=== PATIENT | female | born 1975 | race Caucasian/White ===

== ENCOUNTER 2017-12-27 22:25 | Emergency (ER) | payer OTHER ==
[~2017-12-27 22:25] MED LIST: ADAP0.1G8 TOP; ASPI81TA28 PO; ATEN-173 PO; FEXO180T PO; MEDR150I IM; OMEP40CA PO; RIVA1TAB4 PO; TIZA2CAP PO; TRAM-10 PO; VARE1PAK15 PO
[2017-12-27 22:45] VITALS: Ht 167.6 cm
[2017-12-27] MEDS ORDERED: SODIUM CHLORIDE 0.9% 1000ML 1,000 ML IV STA (22:48)
[2017-12-27 22:49] VITALS: O2SAT 100
--- NOTE | 2017-12-27 22:50 | EMERGENCY ROOM VISIT NOTE ---
History Report prepared by Roxie: Gemma Betancourt Under the Supervision of: Dr. Triston Tapia M.D. First contact with patient: 22:37 Chief Complaint: IRREGULAR HEARTBEAT Stated Complaint: AFIB, HEADACHE, NAUSEA- CARDIAC HX History of Present Illness The patient is a 42 year old female who presents to the Emergency Room with complaints of an irregular heartbeat beginning at 1430 today. She reports she came into the ED today because her she felt her heart was been beating "harder" today. She notes she has a history of Afib. The patient reports she gets nauseous and vomits when her episodes begin but denies any fevers, chills, or cough. She is not on Xarelto regularly but only takes it when her episodes begin. She last took 20 mg Xarelto at 1600 but she vomited at 1645. She is a current smoker and gets control shots so she does not have a normal menstrual cycle. Her coremaker bench is Dr. Arriaga, [facility] Cardio. She currently takes Atenolol 25 mg. Source of History: patient Onset: 1430 today Position: chest Quality: other (heart beating "harder" today) Timing: other (sudden) Associated Symptoms: + nausea, + vomiting Review of Systems See HPI for pertinent positives and negatives. A total of ten systems were reviewed and were otherwise negative. Past Medical & Surgical Medical Problems: (1) A-fib (2) Anxiety Family History Diabetes mellitus FH: heart disease FHx: cancer Hypertension Social History Smoking Status: Current Every Day Smoker Alcohol Use: occasionally Drug Use: none Marital Status: Occupation Status: employed Current/Historical Medications Scheduled Atenolol (Tenormin), 25 MG PO QAM Medroxyprogesterone Acetate (C (Depo-Provera Contraceptiv), 1 DOSE INJ Q3MO Omeprazole (Omeprazole Dr), 40 MG PO QAM [Hemp Oil], 250 MG PO BID Scheduled PRN Fexofenadine Hcl (Nanci), 180 MG PO DAILY PRN for Seasonal Allergies Rivaroxaban (Xarelto), 1 TAB PO DIRECTED PRN for AFIB Allergies Coded Allergies: Minocycline (Verified Allergy, Intermediate, RASH, 12/28/17) POLLEN (Verified Allergy, Intermediate, ITCHY, WATERY EYES, SNEEZING, CONGESTION, 12/28/17) Physical Exam Vital Signs Date Time Temp Pulse Resp B/P (MAP) Pulse Ox O2 Delivery O2 Flow Rate FiO2 12/28/17 01:45 83 16 106/80 98 12/28/17 00:53 98 18 119/80 97 Room Air 12/27/17 22:49 100 Room Air 12/27/17 22:45 100 Room Air 12/27/17 22:45 114 31 127/74 100 Room Air 12/27/17 22:40 115 Physical Exam GENERAL: Awake, alert, fatigued-appearing, in no distress HENT: Normocephalic, atraumatic. Oropharynx unremarkable. Mucous membranes are dry. EYES: Normal conjunctiva. Sclera non-icteric. NECK: Supple. No nuchal rigidity. FROM. No JVD. RESPIRATORY: Clear to auscultation. CARDIAC: Tachycardic rate, Irregularly irregular rhythm. Extremities warm and well perfused. Pulses equal. ABDOMEN: Soft, non-distended. No tenderness to palpation. No rebound or guarding. No masses. RECTAL: Deferred. MUSCULOSKELETAL: Chest examination reveals no tenderness. The back is symmetrical on inspection without obvious abnormality. There is no CVA tenderness to palpation. No joint edema. LOWER EXTREMITIES: Calves are equal size bilaterally and non-tender. No edema. No discoloration. NEURO: Normal sensorium. No sensory or motor deficits noted. SKIN: No rash or jaundice noted. Medical Decision & Procedures ER Provider Diagnostic Interpretation: Radiology results as stated below per my review and interpretation: CHEST XRAY Chest X-ray is normal. Mediastinum. No gross infiltrates Laboratory Results 12/27/17 22:40 Red Blood Count 5.04, Mean Corpuscular Volume 88.3, Mean Corpuscular Hemoglobin 29.4, Mean Corpuscular Hemoglobin Concent 33.3, Mean Platelet Volume 12.1, Neutrophils (%) (Auto) 66.8, Lymphocytes (%) (Auto) 25.3, Monocytes (%) (Auto) 6.9, Eosinophils (%) (Auto) 0.4, Basophils (%) (Auto) 0.2, Neutrophils # (Auto) 9.21, Lymphocytes # (Auto) 3.48, Monocytes # (Auto) 0.95, Eosinophils # (Auto) 0.06, Basophils # (Auto) 0.03 12/27/17 22:40 Test 12/27/17 22:40 White Blood Count 13.78 K/uL (4.8-10.8) Red Blood Count 5.04 M/uL (4.2-5.4) Hemoglobin 14.8 g/dL (12.0-16.0) Hematocrit 44.5 % (37-47) Mean Corpuscular Volume 88.3 fL (80-100) Mean Corpuscular Hemoglobin 29.4 pg (25-34) Mean Corpuscular Hemoglobin Concent 33.3 g/dl (32-36) Platelet Count 228 K/uL (130-400) Mean Platelet Volume 12.1 fL (7.4-10.4) Neutrophils (%) (Auto) 66.8 % Lymphocytes (%) (Auto) 25.3 % Monocytes (%) (Auto) 6.9 % Eosinophils (%) (Auto) 0.4 % Basophils (%) (Auto) 0.2 % Neutrophils # (Auto) 9.21 K/uL (1.4-6.5) Lymphocytes # (Auto) 3.48 K/uL (1.2-3.4) Monocytes # (Auto) 0.95 K/uL (0.11-0.59) Eosinophils # (Auto) 0.06 K/uL (0-0.5) Basophils # (Auto) 0.03 K/uL (0-0.2) RDW Standard Deviation 43.5 fL (36.4-46.3) RDW Coefficient of Variation 13.5 % (11.5-14.5) Immature Granulocyte % (Auto) 0.4 % Immature Granulocyte # (Auto) 0.05 K/uL (0.00-0.02) Anion Gap 8.0 mmol/L (3-11) Estimated GFR () 103.7 Estimated GFR (Non- 89.5 BUN/Creatinine Ratio 16.3 (10-20) Calcium Level 8.9 mg/dl (8.5-10.1) Phosphorus Level 4.1 mg/dl (2.5-4.9) Magnesium Level 2.2 mg/dl (1.8-2.4) Total Bilirubin 1.1 mg/dl (0.2-1) Direct Bilirubin 0.2 mg/dl (0-0.2) Aspartate Amino Transf (AST/SGOT) 13 U/L (15-37) Alanine Aminotransferase (ALT/SGPT) 28 U/L (12-78) Alkaline Phosphatase 107 U/L (45-117) Total Protein 7.1 gm/dl (6.4-8.2) Albumin 3.8 gm/dl (3.4-5.0) Lipase 95 U/L (73-393) Thyroid Stimulating Hormone (TSH) 0.706 uIu/ml (0.300-4.500) Human Chorionic Gonadotropin, Qual NEG (NEG) Laboratory results reviewed by me Medications Administered Medications (Trade) Dose Ordered Sig/Antwan Route Start Time Stop Time Status Last Admin Dose Admin Sodium Chloride 1,000 ml @ 999 mls/hr Q1H1M STAT IV 12/27/17 22:48 12/27/17 23:48 DC 12/27/17 22:48 999 MLS/HR Lorazepam (Ativan Inj) 0.5 mg NOW STAT IV 12/27/17 22:52 12/27/17 22:53 DC 12/27/17 23:01 0.5 MG Metoclopramide HCl (Reglan Inj) 10 mg NOW STAT IV 12/27/17 23:40 12/27/17 23:41 DC 12/27/17 23:46 10 MG Dexamethasone Sodium Phosphate (Dexamethasone Inj Pf) 10 mg NOW ONCE IV 12/28/17 01:30 12/28/17 01:31 DC 12/28/17 01:35 10 MG Acetaminophen (Tylenol Tab) 1,000 mg NOW STAT PO 12/28/17 01:25 12/28/17 01:27 DC 12/28/17 01:36 1,000 MG ECG Per My Interpretation Indication: other (irregular heartbeat) Rate (beats per minute): 122 Rhythm: atrial fibrillation (with RVR) Findings: RBBB (incomplete), no acute ischemic change, other (normal axis) ED Course 2215: The patient was evaluated in room B2. A complete history and physical exam was performed. Medical Decision I reviewed the patient's past medical history, medications, and the nursing notes as described above. Differential diagnosis: Etiologies such as premature contractions, electrolyte abnormality, cardiac dysrhythmia, thyroid dysfunction, pulmonary embolism, infection, gastrointestinal, as well as others were entertained. The patient is a 42 y/o woman with a pmhx of pAfib on Atenolol, Anxiety, BPD, prior substance abuse who presents to the emergency department with palpitations and recurrence of her afib per HPI. Of note patient has rx for Xarelto for when her afib recurs. Of note, patient reports her episodes usually resolve on their own and would not want "electrical cardioversion". On arrival the patient is fatigued appearing but in NAD, AF with HR 120-130s but VS otherwise stable. EKG demonstrates Afib with RVR and incomplete RBBB that is unchanged from prior. CXR negative. WBC 13.7 nonspecific. Chemistry unremarkable. Sx and HR improved with IVF in the setting of patient taking dose of her Atenolol [employer]. SANTANA significantly improved with Reglan. Given APAP and dexamethasone for additional relief and to reduce risk of recurrence. Otherwise , while onset of sx is confidently < 48 hours, given the patient's with resolution of sx and rate control will defer chemical cardioversion at this time. Patient to continue her medications and follow up with cardiology tomorrow. Findings and plan for follow-up reviewed with patient. Patient agreeable and d/c'd per discharge instructions. Medication Reconcilliation Current Medication List: was personally reviewed by me Blood Pressure Screening Patient's blood pressure: Normal blood pressure Blood pressure disposition: Did not require urgent referral Impression Primary Impression: Atrial fibrillation Scribe Attestation The scribe's documentation has been prepared under my direction and personally reviewed by me in its entirety. I confirm that the note above accurately reflects all work, treatment, procedures, and medical decision making performed by me. Departure Information Dispostion Home / Self-Care Referrals RV. Burrows MD (PCP) Yazan Arriaga M.D. Patient Instructions Atrial Fibrillation, My [facility] Additional Instructions Please follow up with your coremaker bench, Dr. Arriaga, tomorrow for re- evaluation. You were evaluated and treated for a recurrence of her atrial fibrillation. Your symptoms and heart rate improved with IV fluid hydration in the setting of your additional dose of atenolol prior to arrival. Otherwise, your exam, EKG, chest xray, and lab results did not show signs of an emergent condition at this time. Continue your medications as prescribed including her Xarelto until reevaluated. Drink plenty of fluids to ensure hydration. Return to the emergency department for worsening symptoms as described in the accompanying instructions.
[2017-12-27] MEDS ORDERED: LORAZEPAM 2 MG/ML 1 ML VIAL IV STA (22:52)
[2017-12-27 22:59] LABS: BASO % 0.2 %; BASO ABS # 0.03 K/uL (0-0.2); EOS % 0.4 %; EOS ABS # 0.06 K/uL (0-0.5); HEMATOCRIT 44.5 % (37-47); HEMOGLOBIN 14.8 g/dL (12.0-16.0); IG# 0.05 K/uL (0.00-0.02); LYMPH % 25.3 %; LYMPH ABS # 3.48 K/uL (1.2-3.4); MEAN CELL VOLUME 88.3 fL (80-100); MEAN CORPUSCULAR HEMOGLOBIN 29.4 pg (25-34); MEAN CORPUSCULAR HGB CONC 33.3 g/dl (32-36); MEAN PLATELET VOLUME 12.1 fL (7.4-10.4); MONO % 6.9 %; MONO ABS # 0.95 K/uL (0.11-0.59); NEUT % 66.8 %; NEUT ABS # 9.21 K/uL (1.4-6.5); PLATELET COUNT 228 K/uL (130-400); RED CELL DISTRIBUTION WIDTH CV 13.5 % (11.5-14.5); RED CELL DISTRIBUTION WIDTH SD 43.5 fL (36.4-46.3); WHITE BLOOD COUNT 13.78 K/uL (4.8-10.8)
[2017-12-27 23:30] LABS: ALBUMIN 3.8 gm/dl (3.4-5.0); ALKALINE PHOSPHATASE 107 U/L (45-117); ALT/SGPT 28 U/L (12-78); AST/SGOT 13 U/L (15-37); BLOOD UREA NITROGEN 13 mg/dl (7-18); CALCIUM 8.9 mg/dl (8.5-10.1); CARBON DIOXIDE 22 mmol/L (21-32); CREATININE 0.82 mg/dl (0.60-1.20); GLUCOSE 119 mg/dl (70-99); LIPASE 95 U/L (73-393); PHOSPHORUS 4.1 mg/dl (2.5-4.9); POTASSIUM 3.8 mmol/L (3.5-5.1); SODIUM 138 mmol/L (136-145); TOTAL PROTEIN 7.1 gm/dl (6.4-8.2)
[2017-12-27] MEDS ORDERED: METOCLOPRAMIDE HCL INJ 5 MG/ML 2 ML VIAL IV STA (23:40)
[2017-12-28] MEDS ORDERED: FEXO1TAB46 PO (00:22)
[2017-12-28] MEDS ORDERED: MEDR150I INJ (00:22)
[2017-12-28] MEDS ORDERED: OMEP-334 PO (00:22)
[2017-12-28] MEDS ORDERED: HEMP OIL PO (00:22)
[2017-12-28] MEDS ORDERED: ACETAMINOPHEN IV 100 ML IV STA (01:22)
[2017-12-28] MEDS ORDERED: ACETAMINOPHEN 500 MG TAB PO STA (01:25)
[2017-12-28] MEDS ORDERED: DEXAMETHASONE **PF** INJ 10 MG/ML VIAL IV ONE (01:30)
[2017-12-28 01:45] VITALS: BP 106/80; PULSE 83; O2SAT 98
--- NOTE | 2017-12-28 07:17 | DIAGNOSTIC IMAGING REPORT ---
CHEST ONE VIEW PORTABLE HISTORY: Atypical CHEST PAIN COMPARISON: Chest 03/12/2013. FINDINGS: The lungs are clear. Cardiac silhouette is normal in size. No pleural effusions. No pneumothorax. IMPRESSION: No acute process. Electronically signed by: Oleksandr Isaacs M.D. 12/28/2017 7:16 AM Dictated Date/Time: 12/28/2017 7:14 AM
== END 2017-12-28 01:46 | disposition home or self-care (01) ==
LOC: C.EDB 22:26
DX: I48.91 Unspecified atrial fibrillation (principal); I45.10 Unspecified right bundle-branch block; Z79.899 Other long term (current) drug therapy; F17.200 Nicotine dependence, unspecified, uncomplicated; Z88.1 Allergy status to other antibiotic agents

== ENCOUNTER 2025-03-19 13:48 | Observation (INO) ==
[2025-03-19 15:20] LABS: Hematocrit (blood only) 39.7 % (37.0-47.0); Hemoglobin 14.1 g/dl (12.0-16.0); Mean Corpuscular Hemoglobin 31.3 pg (25.0-34.0); Mean Corpuscular Volume 88.2 fL (80.0-100.0); Platelet Count 259 K/uL (130-400); RDW Standard Deviation 38.0 fL (36.4-46.3); Red Blood Count 4.50 M/uL (4.20-5.40); White Blood Count 8.68 K/ul (4.8-10.8)
--- NOTE | 2025-03-19 15:20 | CT Scan Report ---
CT SCAN OF THE BRAIN WITHOUT IV CONTRAST CLINICAL HISTORY: Possible acute stroke. Difficulty using the right arm. Numbness and tingling. COMPARISON STUDY: None TECHNIQUE: Unenhanced axial CT scan of the brain was performed from the vertex to the skull base. A dose lowering technique was utilized adhering to the principles of ALARA. CT DOSE: 625.8 mGy.cm FINDINGS: No intra or extra-axial mass lesions are visualized. There is no CT evidence of acute cortical infarc tion. There is no evidence of midline shift. There is no evidence of acute hemorrhage. There is no ev idence of hydrocephalus. Bone windows reveal groundglass changes within the posterior mastoid. 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 There is no evidence of acute hydrocephalus. IMPRESSION: No acute intracranial findings. ACT 112: Negative or not required by law. Electronically signed by: Ray Hamilton M.D. 03/19/2025 3:19 PM
--- NOTE | 2025-03-19 15:32 | XRay Report ---
SINGLE VIEW CHEST CLINICAL HISTORY: Strokelike symptoms FINDINGS: A PA chest radiograph is compared to study dated 01/12/2025. The cardiomediastinal silhouett e is unremarkable. The lungs and pleural spaces are clear. No pneumothorax is seen. The bony thorax i s grossly intact. IMPRESSION: No active disease in the chest. ACT 112: Negative or not required by law. Electronically signed by: Sean Lowe M.D. 03/19/2025 3:30 PM
[2025-03-19 15:44] LABS: Alanine Aminotransferase 46.0 U/L (7-52); Albumin Globulin Ratio 1.4 (0.9-2); Albumin Level 4.1 gm/dl (3.4-5.0); Alkaline Phosphatase 76.0 U/L (34-104); Anion Gap 7.0 (3-11); Bilirubin,Total 1.5 mg/dl (0.2-1.0); Blood Urea Nitrogen 11.0 mg/dl (6-23); Calcium 9.2 mg/dl (8.6-10.3); Carbon Dioxide 28.0 mmol/L (21-32); Chloride 106.0 mmol/L (98-107); Creatinine Clr Calc Pharmacy 120.1 ml/min; Globulin 2.9 gm/dl (2.5-4.0); Glucose 102.0 mg/dl (70-99(Fasting)); Magnesium 2.4 mg/dl (1.7-2.4); Potassium 3.8 mmol/L (3.5-5.1); Sodium 141.0 mmol/L (136-145); Total Protein 7.0 gm/dl (6.0-8.3)
[2025-03-19 15:50] LABS: INR 1.0 (0.9-1.1); Partial Thromboplastin Time 24 Seconds (21-31); Prothrombin Time 10.3 Seconds (9.0-12.0)
--- NOTE | 2025-03-19 16:15 | Emergency Department Note ---
Impression & Plan Weakness of right upper extremity, Elevated bilirubin ED Provider Note NAME: SHINE KEITA AGE: 49 SEX: F : 1975 ARRIVES VIA: Walk-In INFORMANT: Patient, ED PROVIDER(S): Jasbir Nails MD CHIEF COMPLAINT: Right upper extremity weakness MEDICAL DECISION MAKING: Patient presents with above. Patient does have right upper extremity weakness present on exam although ongoing for several days and not a TNK candidate. Initial blood work fairly unremarkable CT head negative with negative EKG and chest x-ray. Patient did have a Lyme's added in addition to a CT angiography of the head and neck. Did discuss with the patient that she likely would benefit from inpatient treatment and further evaluation. Patient comfortable with that plan of care. Patient's blood work shows a normal white count H&H and platelet count kidney function is unremarkable. Very mild transaminitis with an AST of 40 and a bilirubin of 1.5. No reported right upper quadrant pain. The patient did have recent Lyme's treatment back in January. Lyme's was ordered and pending. CT angiography of the head and neck are unremarkable. Thyroid nodules noted which was conveyed to the patient. Patient was ordered 324 of aspirin and an MRI of the brain was ordered along with Ativan to be given for sedative purposes as the patient is claustrophobic for MRI. I did speak with the on-call hospital service Dr. Galeana and the patient was admitted to the medicine service for the patient's right upper extremity weakness. Discussion w/ other healthcare providers: Dr. Galeana inpatient medicine service Prior /Outside records reviewed: none Differential diagnosis: Infection, dehydration, metabolic abnormality, hypo/hyperglycemia, electrolyte imbalance, anemia, UTI, pneumonia, thyroid dysfunction among others were considered. Diagnostics, as interpreted by me: ECG: Normal sinus rhythm, rate of 71, normal intervals, normal axis no ST elevations. Cardiac monitoring: An order was placed for continuous cardiac monitoring. The monitor shows a rate of 72 with sinus rhythm. Patient was placed on pulse oximetry Medical decision rules: None Imaging studies: I informally interpreted the patient's chest x-ray does not show obvious pneumonia with formal report to follow. HPI: Patient presents due to concern for right upper extremity weakness. She reports that she has had issues with fine motor skills over the last year but this would be intermittent although she realized it was more pronounced just in the last 2 to 3 days. Patient does feel as though the right upper extremity is weak and seems to be fatigable. Patient reports that she has had some right sided neck pain that only developed today. The patient denies any recent chiropractic manipulation. She reports she was treated for Lyme's several months ago and was treated with second line treatment as she does have an allergy to doxycycline. No recent known tick bites. Patient denies any history of stroke or mini stroke. No reported slurred speech or facial droop. No falls or trauma. 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 She states that she did have a ulnar carpal tunnel release due to concerns for some numbness in fingers of her hand but this is more pronounced involving the whole arm. PAST MEDICAL HISTORY: See Below PAST SURGICAL HISTORY: See Below SOCIAL HISTORY: See Below HOME MEDICATIONS: See Below ALLERGIES: See Below VITALS: See Below PHYSICAL EXAMINATION: GENERAL: NAD, non-toxic. EYE EXAM: Normal conjunctiva. PERRL, no anisocoria and EOM's grossly intact w/o pain. Wearing contacts OROPHARYNX: Moist mucus membranes, grossly normal dentition. NECK: Trachea midline, no stridor. LUNGS: Clear to auscultation. Normal chest wall mechanics. HEART: NSR, no MRG. ABDOMEN: Abdomen soft, non-tender, no masses, no rebound or guarding. BACK: No CVA TTP. SKIN: No rashes and no bruising. UPPER EXTREMITIES: Upper extremities are grossly normal. LOWER EXTREMITIES: Grossly normal, no edema. NEURO EXAM: Awake and alert, follows commands, no obvious facial asymmetry, normal speech, moves all 4 extremities but with 4 out of 5 extremity weakness in the right arm when compared to the left good alteration worker strength good [id number], no drift and no sensory deficits.. Past Med/Surg History Problem List (Updated 03/19/25 @ 18:10 by Jasbir Nails MD) Elevated bilirubin (Acute) Weakness of right upper extremity (Acute) Tiredness Chest tightness Current every day vaping Acute medical illness GERD (gastroesophageal reflux disease) Anemia Impaired concentration Family history of breast cancer in [facility] care maintenance Abnormal TSH (Acute) Back pain (Acute) Cervical radiculopathy (Acute) Dyslipidemia (Acute) Impaired fasting glucose (Acute) Internal hemorrhoids (Acute) Paroxysmal atrial fibrillation (Acute) Anxiety (Chronic) Constipation (Acute) Medical History Nicotine dependence Well adult exam Hyperlipemia Back problem Infected sebaceous cyst Sebaceous cyst Urge incontinence Excessive sweating Screening mammogram for breast cancer Breast mass Leukocytosis Tingling of upper extremity Ulnar neuropathy of right upper extremity Bronchitis ASCUS of cervix with negative high risk HPV 03/24/16 History of sleep disturbance History of rectal bleeding History of headache Atrial fibrillation PARAOXSMAL, EPISODES LAST LESS THAN 24 HOURS. Atrial fibrillation A-fib Surgical History Epidermal cyst (04/16/24) FINAL DIAGNOSIS In office procedure Dr. Guzman Skin, upper back, excision: - Epidermal cyst. H/O tooth extraction History of esophagogastroduodenoscopy (EGD) 10/12/16 @ [place] History of colonoscopy 10/12/16 @ [place]; 07/26/15 History of tonsillectomy Family History Father Atrial fibrillation Mother Breast cancer Hypertension Denies family history of Ovarian cancer Prostate cancer Myocardial infarction Colorectal cancer Social History Smoking Status: Never smoker Tobacco Type: Cigarettes Age Started Using Tobacco: 16; packs per day: 1; Cigarettes Per Day: 20 cigarettes/day. 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 Feels Safe at Home: Yes Diet: regular caffeine: Yes during the past year weight has: remained stable Dental Care, Regularly: Yes Physical Activity Frequency: Does not Exercise Seatbelt Use: always Sunscreen Use: Yes Assistive Devices: Glasses Allergies Allergies Allergy/AdvReac Type Severity Reaction Status Date / Time minocycline Allergy Intermediate RASH, HIVES Verified 03/16/25 15:06 pollen extracts Allergy Intermediate ITCHY, Verified 03/16/25 15:06 WATERY EYES, SNEEZING, CONGESTION tetracycline Allergy Verified 03/16/25 15:06 Home Meds Home Medications Medication Instructions Recorded Confirmed methylphenidate HCl 10 mg tablet 10 mg PO DAILY 01/08/25 03/16/25 (Ritalin) Previous Rx's Medication Instructions Recorded esomeprazole magnesium 20 mg 20 mg PO DAILY #90 caps 08/31/22 capsule,delayed release ferrous sulfate 325 mg (65 mg 325 mg PO DAILY #30 tabs 09/26/24 iron) tablet (Feosol) alprazolam 0.5 mg tablet (Xanax) 0.5 - 1 mg (1 - 2 x 0.5 mg) PO 10/24/24 DAILY PRN anxiety #10 tabs methylphenidate HCl 27 mg 27 mg PO DAILY #30 tabs 10/29/24 tablet,extended release 24 hr (Concerta) atenolol 25 mg tablet 25 mg PO DAILY #30 tabs 11/21/24 betamethasone dipropionate 0.05 % 1 applic topical .COMPLEX #60 mL 01/08/25 lotion erythromycin with ethanol 2 % 1 applic topical DAILY #60 ea 01/08/25 topical swab Results & Data (ED) Vital Signs Vital Signs - 24 hr 03/19/25 13:55 03/19/25 16:24 03/19/25 16:25 Temperature 36.6 C Temperature Source Temporal Artery Scan Pulse Rate 91 H 59 L Pulse Rate [Apical] 73 Pulse Rhythm Regular Respiratory Rate 20 18 Respiratory Effort / Characteristics Non-Labored Spontaneous Respiratory Depth Normal Respiratory Pattern Regular Blood Pressure 158/99 H Blood Pressure [Right Radial Artery] 162/107 H Blood Pressure Mean 118 Blood Pressure Mean [Right Radial Artery] 125 Blood Pressure Position Sitting Pulse Oximetry 99 Oxygen Delivery Method Room Air Sepsis Recent Fever Within 48 Hours No Sepsis New/Unexplained Change in Mental Status No Sepsis Action Taken by Nursing No Action Required 03/19/25 16:25 03/19/25 16:25 Temperature Temperature Source Pulse Rate Pulse Rate [Apical] Pulse Rhythm Respiratory Rate Respiratory Effort / Characteristics Respiratory Depth Respiratory Pattern Blood Pressure Blood Pressure [Right Radial Artery] Blood Pressure Mean Blood Pressure Mean [Right Radial Artery] Blood Pressure Position Pulse Oximetry Oxygen Delivery Method Room Air Room Air Sepsis Recent Fever Within 48 Hours Sepsis New/Unexplained Change in Mental Status Sepsis Action Taken by [facility] Medications Current Medication List: was personally reviewed by me Laboratory Data Attestation: I reviewed the patient's lab results. 03/19/25 15:03 03/19/25 15:03 Lab Results 03/19/25 Range/Units 15:03 WBC 8.68 (4.8-10.8) K/ul RBC 4.50 (4.20-5.40) M/uL Hgb 14.1 (12.0-16.0) g/dl Hct 39.7 (37.0-47.0) % MCV 88.2 (80.0-100.0) fL MCH 31.3 (25.0-34.0) pg MCHC 35.5 (32.0-36.0) g/dL RDW Std Deviation 38.0 (36.4-46.3) fL RDW Coeff of López 11.8 (11.5-14.5) % Plt Count 259 (130-400) K/uL MPV 11.7 (9.4-12.4) fL PT 10.3 (9.0-12.0) Seconds INR 1.0 (0.9-1.1) APTT 24 (21-31) Seconds PTT Ratio 0.9 Sodium 141 (136-145) mmol/L Potassium 3.8 (3.5-5.1) mmol/L Chloride 106 (98-107) mmol/L Carbon Dioxide 28 (21-32) mmol/L Anion Gap 7 (3-11) BUN 11 (6-23) mg/dl Creatinine 0.50 L (0.6-1.2) mg/dl Est Cr Clr Drug Dosing 120.1 ml/min eGFR 116.34 BUN/Creatinine Ratio 22.0 H (10-20) Glucose 102 H (70-99(Fasting)) mg/dl Calcium 9.2 (8.6-10.3) mg/dl Magnesium 2.4 (1.7-2.4) mg/dl Total Bilirubin 1.5 H (0.2-1.0) mg/dl AST 40 H (13-39) U/L ALT 46 (7-52) U/L Alkaline Phosphatase 76 (34-104) U/L Total Protein 7.0 (6.0-8.3) gm/dl Albumin 4.1 (3.4-5.0) gm/dl Globulin 2.9 (2.5-4.0) gm/dl Albumin/Globulin Ratio 1.4 (0.9-2) Administered Medications Discontinued Medications Aspirin (Aspirin Chew 324 Mg) 324 mg PO NOW STA Stop: 03/19/25 17:50 Last Admin: 03/19/25 18:00 Dose: 324 mg Documented By: RADHA Ioversol (Optiray 320 125ml) 119 ml IV ONCE ONE Stop: 03/19/25 16:50 Last Admin: 03/19/25 16:49 Dose: 119 ml Documented By: LEANDER Imaging Data Radiologist's Impression: Chest X-Ray 03/19/25 13:57 SINGLE VIEW CHEST CLINICAL HISTORY: Strokelike symptoms FINDINGS: A PA chest radiograph is compared to study dated 01/12/2025. The cardiomediastinal silhouette is unremarkable. The lungs and pleural spaces are clear. No pneumothorax is seen. The bony thorax is grossly intact. IMPRESSION: No active disease in the chest. ACT 112: Negative or not required by law. Electronically signed by: Sean Lowe M.D. 03/19/2025 3:[address] 03/19/25 13:57 CT SCAN OF THE BRAIN WITHOUT IV CONTRAST CLINICAL HISTORY: Possible acute stroke. Difficulty using the right arm. Numbness and tingling. COMPARISON STUDY: None TECHNIQUE: Unenhanced axial CT scan of the brain was performed from the vertex to the skull base. A dose lowering technique was utilized adhering to the principles of ALARA. CT DOSE: 625.8 mGy.cm FINDINGS: No intra or extra-axial mass lesions are visualized. There is no CT evidence of acute cortical infarction. There is no evidence of midline shift. There is no evidence of acute hemorrhage. There is no evidence of hydrocephalus. Bone windows reveal groundglass changes within the posterior mastoid. 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 There is no evidence of acute hydrocephalus. IMPRESSION: No acute intracranial findings. ACT 112: Negative or not required by law. Electronically signed by: Ray Hamilton M.D. 03/19/2025 3:19 PM Head CTA 03/19/25 16:34 Technique: Axial computed tomography images were obtained of the brain after the administration of intravenous contrast according to the CT angiogram protocol Findings: No definite stenosis or aneurysm is seen of the anterior, middle, or posterior cerebral artery circulations. The visualized vertebral arteries and the basilar artery appear unremarkable Impression: No definite stenosis or aneurysm of the intracranial arteries Electronically signed by Marcial Beasley 03-19-2025 5:12 PM Neck CTA 03/19/25 16:34 Technique: Axial computed tomography images were obtained of the neck after the administration of intravenous contrast according to the CT angiogram protocol Findings: No stenosis is seen of the common carotid arteries bilaterally. The carotid bulbs appear normal. The remainder of the internal carotid arteries appear patent bilaterally. No stenosis of the external carotid arteries is seen The vertebral arteries are patent bilaterally with no significant stenosis seen. The visualized thoracic aorta appears unremarkable There are small thyroid nodules bilaterally. Impression: 1. No definite stenosis of the neck arteries 2. Small thyroid nodules. A follow-up thyroid ultrasound could be obtained Electronically signed by Marcial Beasley 03-19-2025 5:20 PM Discharge Plan Visit Data Chief Complaint: Neuro Symptoms/Deficit Stated Complaint: RT ARM NUMB, DIFFICULTY FINE MOTOR SKILLS ED Provider: Jasbir Nails Discharge Problem: Weakness of right upper extremity, Elevated bilirubin Patient Disposition: Admitted As Inpatient Condition: Good Forms Stand Alone Forms: [facility] Prescriptions Prescriptions: No Action methylphenidate HCl [Concerta] 27 mg tablet extended release 24hr 27 mg PO DAILY Qty: 30 0RF atenolol 25 mg tablet 25 mg PO DAILY Qty: 30 5RF esomeprazole magnesium 20 mg capsule,delayed release(DR/EC) 20 mg PO DAILY Qty: 90 3RF ferrous sulfate [Feosol] 325 mg (65 mg iron) tablet 325 mg PO DAILY Qty: 30 1RF methylphenidate HCl [Ritalin] 10 mg tablet 10 mg PO DAILY betamethasone dipropionate 0.05 % lotion 1 applic topical .COMPLEX Qty: 60 1RF Rx Instructions: 1 applic topically to areas of the scalp every other day as directed.; erythromycin with ethanol 2 % swab 1 applic topical DAILY Qty: 60 2RF Rx Instructions: Apply to back/shoulders once daily after washing. alprazolam [Xanax] 0.5 mg tablet 0.5 - 1 mg PO DAILY PRN (Reason: anxiety) Qty: 10 0RF Referrals Referrals: Pily Iverson MD [Primary Care Provider] -
[2025-03-19] MEDS: OPTIRAY 320 125ml IV ONE (16:49)
--- NOTE | 2025-03-19 17:12 | CT Scan Report ---
Technique: Axial computed tomography images were obtained of the brain after the administration of intravenous contrast according to the CT angiogram protocol Findings: No definite stenosis or aneurysm is seen of the anterior, middle, or posterior cerebral artery circulations. The visualized vertebral arteries and the basilar artery appear unremarkable Impression: No definite stenosis or aneurysm of the intracranial arteries Electronically signed by Marcial Beasley 03-19-2025 5:12 PM
--- NOTE | 2025-03-19 17:20 | CT Scan Report ---
Technique: Axial computed tomography images were obtained of the neck after the administration of intravenous contrast according to the CT angiogram protocol Findings: No stenosis is seen of the common carotid arteries bilaterally. The carotid bulbs appear normal. The remainder of the internal carotid arteries appear patent bilaterally. No stenosis of the external carotid arteries is seen The vertebral arteries are patent bilaterally with no significant stenosis seen. The visualized thoracic aorta appears unremarkable There are small thyroid nodules bilaterally. Impression: 1. No definite stenosis of the neck arteries 2. Small thyroid nodules. A follow-up thyroid ultrasound could be obtained Electronically signed by Marcial Beasley 03-19-2025 5:20 PM
--- NOTE | 2025-03-19 17:40 | Electrocardiogram Report ---
Test Reason : Blood Pressure : */* mmHG Vent. Rate : 71 BPM Atrial Rate : 71 BPM P-R Int : 168 ms QRS Dur : 76 ms QT Int : 392 ms P-R-T Axes : 42 10 18 degrees QTcB Int : 425 ms Normal sinus rhythm Anterior infarct , age undetermined Abnormal ECG When compared with ECG of 07-Sep-2019 02:01, Anterior infarct is now Present Confirmed by Familia Mcmullen ([id number]) on 03/19/2025 5:40:27 PM Referred By: Confirmed By: Familia Mcmullen
--- NOTE | 2025-03-19 17:51 | History & Physical Report ---
Date of Service March 19, 2025 Assessment & Plan (1) Weakness of right upper extremity: (2) Elevated LFTs: (3) Neck pain: (4) Paroxysmal atrial fibrillation: Plan This patient is a 49-year-old female with a history of anemia, ADD, anxiety/PTSD, impaired fasting glucose, paroxysmal atrial fibrillation not on anticoagulation, current smoker, who presents with right upper extremity weakness. She reports that she has had issues with fine motor skills in the right hand over the last year but it was more pronounced just in the last 2 to 3 days. She feels pain in her right forearm and dull pain into right upper arm, some crampy, sharper pains in right side of neck, and sensation like she can't make her arm and hand do what she wants it to do. Some decreased sensation in RUE. No heart palpitations and she can tell exactly when she is in A-fib-has not had any episodes since she quit drinking EtOH 8 years ago. Denies CP, SOB, abd pain, headache, N/V. In the ED, her CT of the head, CT angiogram of the head and neck were negative, laboratory values were normal except for mildly elevated LFTs. At the time of admission, the brain MRI was already completed and was negative for stroke. She will be admitted for workup for right upper extremity weakness, right sided neck pain and elevated LFTs. #Right upper extremity weakness/right sided neck pain-CVA ruled out. Likely cervical radiculopathy. Does have elevated LFTs and right shoulder/upper arm pain-possibly related to GB issue although no abd pain or nausea -admit to med-tele for arrhythmia monitoring -stroke scale, neuro checks -check ECHO -check lipids, HgbA1C in AM -check troponin -no need for ASA, statin as MRI brain neg for stroke -check MRI C-spine -PT/OT consulted #Elevated LFTs-TBili and AST elevated. Did have recent mononucleosis infection and could be from that. With acute onset of right shoulder/UE pain -check RUQ US -follow LFTs in AM #Paroxysmal atrial fibrillation-not on anticoagulation-no episodes in 8 years since she quit drinking EtOH. CHADSVasc score 1 for female gender -continue atenolol -tele monitoring #Current smoker-encouraged cessation #Impaired fasting glucose-check A1C #Anxiety/PTSD/ADD-no acute issues -continue Ritalin, xanax prn #GERD-cont PPI DVT prophylaxis-SCDs Disposition-admit to [facility], likely dc to home tomorrow History of Present Illness Chief Complaint: Right upper extremity weakness Primary Care Provider: Pily Iverson MD This patient is a 49-year-old female with a history of anemia, ADD, anxiety/PTSD, impaired fasting glucose, paroxysmal atrial fibrillation not on anticoagulation, current smoker, who presents with right upper extremity weakn ess. She reports that she has had issues with fine motor skills in the right hand over the last year but it was more pronounced just in the last 2 to 3 days. She feels pain in her right forearm and dull pain into right upper arm, some crampy, sharper pains in right side of neck, and sensation like she can't make her arm and hand do what she wants it to do. Some decreased sensation in RUE. No heart palpitations and she can tell exactly when she is in A-fib-has not had any episodes since she quit drinking EtOH 8 years ago. Denies CP, SOB, abd pain, headache, N/V. In the ED, her CT of the head, CT angiogram of the head and neck were negative, laboratory values were normal except for mildly elevated LFTs. At the time of admission, the brain MRI was already completed and was negative for stroke. She will be admitted for workup for right upper extremity weakness, right sided neck pain and elevated LFTs. Allergies Allergy/AdvReac Type Severity Reaction Status Date / Time minocycline Allergy Intermediate RASH, HIVES Verified 03/16/25 15:06 pollen extracts Allergy Intermediate ITCHY, Verified 03/16/25 15:06 WATERY EYES, SNEEZING, CONGESTION tetracycline Allergy Verified 03/16/25 15:06 Home Medications Medication Instructions Recorded Confirmed Type esomeprazole magnesium 20 mg 20 mg PO DAILY #90 caps 08/31/22 03/19/25 Rx capsule,delayed release ferrous sulfate 325 mg (65 mg 325 mg PO DAILY #30 tabs 09/26/24 03/19/25 Rx iron) tablet (Feosol) alprazolam 0.5 mg tablet (Xanax) 0.5 - 1 mg (1 - 2 x 0.5 mg) PO 10/24/24 03/19/25 Rx DAILY PRN anxiety #10 tabs atenolol 25 mg tablet 25 mg PO DAILY #30 tabs 11/21/24 03/19/25 Rx betamethasone dipropionate 0.05 % 1 applic topical .COMPLEX #60 mL 01/08/25 03/19/25 Rx lotion erythromycin with ethanol 2 % 1 applic topical DAILY #60 ea 01/08/25 03/19/25 Rx topical swab methylphenidate HCl 10 mg tablet 10 mg PO BID 01/08/25 03/19/25 History (Ritalin) fexofenadine 180 mg tablet 180 mg PO QAM 03/19/25 03/19/25 History ibuprofen 0 mg PO DAILY PRN Pain 03/19/25 03/19/25 History methylphenidate HCl 27 mg 36 mg PO DAILY 03/19/25 03/19/25 History tablet,extended release 24 hr (Concerta) Past Med/Surg History Problem List (Updated 03/19/25 @ 19:43 by Priscilla Edwards MD) Neck pain Elevated LFTs Elevated bilirubin (Acute) Weakness of right upper extremity (Acute) Tiredness Chest tightness Current every day vaping Acute medical illness GERD (gastroesophageal reflux disease) Anemia Impaired concentration Family history of breast cancer in [facility] Health care maintenance Abnormal TSH (Acute) Back pain (Acute) Cervical radiculopathy (Acute) Dyslipidemia (Acute) Impaired fasting glucose (Acute) Internal hemorrhoids (Acute) Paroxysmal atrial fibrillation (Acute) Anxiety (Chronic) Constipation (Acute) Medical History Nicotine dependence Well adult exam Hyperlipemia Back problem Infected sebaceous cyst Sebaceous cyst Urge incontinence Excessive sweating Screening mammogram for breast cancer Breast mass Leukocytosis Tingling of upper extremity Ulnar neuropathy of right upper extremity Bronchitis ASCUS of cervix with negative high risk HPV 03/24/16 History of sleep disturbance History of rectal bleeding History of headache Atrial fibrillation PARAOXSMAL, EPISODES LAST LESS THAN 24 HOURS. Atrial fibrillation A-fib Surgical History Epidermal cyst (04/16/24) FINAL DIAGNOSIS In office procedure Dr. Guzman Skin, upper back, excision: - Epidermal cyst. H/O tooth extraction History of esophagogastroduodenoscopy (EGD) 10/12/16 @ [facility] History of colonoscopy 10/12/16 @ [facility]; 07/26/15 History of tonsillectomy Family History Father Atrial fibrillation Mother Breast cancer Hypertension Denies family history of Ovarian cancer Prostate cancer Myocardial infarction Colorectal cancer Social History Smoking Status: Never smoker Tobacco Type: Cigarettes Age Started Using Tobacco: 16; packs per day: 1; Cigarettes Per Day: 20 cigarettes/day. 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 Feels Safe at Home: Yes Diet: regular caffeine: Yes during the past year weight has: remained stable Dental Care, Regularly: Yes Physical Activity Frequency: Does not Exercise Seatbelt Use: always Sunscreen Use: Yes Assistive Devices: Glasses Review of Systems Review of Systems: All systems reviewed & are unremarkable except as noted in HPI & below Physical Exam Constitutional: WD/WN, vitals as above Eyes: PERRL, conjunctivae normal, anicteric sclerae ENMT: external ear and nose normal, oropharynx normal Neck: trachea midline, no thyromegaly Respiratory: normal respiratory effort, lungs clear to auscultation Cardiovascular: RRR, no murmur, no edema Chest (Breasts): Chest: normal inspection of chest Gastrointestinal (Abdomen): normal bowel sounds, soft, nontender, no hepatosplenomegaly Musculoskeletal: Extremities: extremities normal to inspection; no cyanosis and no clubbing Skin: no rashes, warm and dry Neurologic: patellar DTR's 2+ bilat, sensation intact and PERRL, EOMI, accommodation nl, no face palsy, no dysarthria normal touch/pain/proprioception, CN's II-XI intact bilaterally, moves all extremities and awake; no focal motor deficits Speech / Cognition: normal speech Motor/Sensory: no tremor and no pronator drift Gait: no ataxic gait Coordination: normal krclou-mr-lafv test, normal jliw-zb-[id number] test, normal Romberg test and normal rapid alternating movements Psychiatric: A+Ox3, euthymic affect Lymphatic: no lymphedema Results & Data Results & Data Vital Signs (Past 12 Hours) Vital Signs Temp Pulse Pulse Resp BP BP Pulse Ox 03/19/25 16:25 03/19/25 16:25 03/19/25 16:25 73 18 162/107 H 03/19/25 16:24 59 L 03/19/25 13:55 36.6 C 91 H 20 158/99 H 99 O2 Del Method 03/19/25 16:25 Room Air 03/19/25 16:25 Room Air 03/19/25 16:25 03/19/25 16:24 03/19/25 13:55 Room Air Laboratory Results CBC, PT/PTT/INR, CMP, magnesium, and Lyme titer reviewed Diagnostic Findings CT angiogram head/neck, CT head noncontrast, MRI brain, CXR reviewed ECG Additional Comments: ECG on 03/19/2025 at 1506 with normal sinus rhythm, rate 71, no acute ischemic changes Code Status & VTE Plan Code Status Full code VTE Prophylaxis Plan VTE Prophylaxis will be ordered: Yes PG Care Time/CCT Total # of Minutes Spent Total Time Spent with Patient: Total time spent is greater than 50% in coordination of care (as documented) at patient's floor/unit and/or counseling patient: Coding Level of Care Code 85436 INT INP/OBS CARE 3/75MIN Diagnoses Weakness of right upper extremity R29.898 Elevated LFTs R79.89 Neck pain M54.2 Paroxysmal atrial fibrillation I48.0
[2025-03-19] MEDS: ASPIRIN CHEW 324 MG PO STA (18:00)
[2025-03-19] MEDS: LORazepam 1 MG/1 ML SYR ED Inj Use IV STA (18:37)
--- NOTE | 2025-03-19 19:23 | Magnetic Resonance Report ---
MRI of the brain performed without IV contrast History: Arm numbness Comparison: None Technique: Sagittal T1-weighted and axial T2-weighted, T2/FLAIR and diffusion-weighted with ADC map images of the brain were obtained without IV contrast. Findings: No evidence for intracranial mass lesion, mass-effect, midline shift, or abnormal extra-axial fluid collection. The ventricles and sulci are within normal limits for age. No abnormally reduced diffusion or evidence for acute infarct. Normal intravascular flow voids. Impression: Normal brain MRI Electronically signed by Jacinto Monsalve 03-19-2025 7:23 PM
[2025-03-19] MEDS: LORazepam Inj 1 MG in SYRINGE 0.5 ML IV PRN (22:10)
--- NOTE | 2025-03-19 23:21 | Ultrasound Report ---
Exam(s): US GALLBLADDER EXAM: US Abdomen Limited, Gallbladder CLINICAL HISTORY: Reason for exam: elevated LFTs. OTHER: Other Notes: GB: ?Distended. Filled with sludge and ?likely small stones. Wall=.3cm. Negative Peraza's sign. CBD: .3cm. Rt kidney: No hydronephrosis. TECHNIQUE: Real-time ultrasound of the right upper quadrant with image documentation. COMPARISON: CT abdomen pelvis 06/24/2015. FINDINGS: Gallbladder: Mildly distended, with diffuse sludge and small stones. Gallbladder wall 3 mm, upper limits normal with negative sonographic Peraza's. Common bile duct: CBD 3 mm. No dilation. Pancreas: Unremarkable as visualized. Limited due to bowel gas. Other: Fatty liver. IMPRESSION: 1. Gallbladder is filled with sludge and small stones. 2. No definite signs of acute cholecystitis at this time. Electronically signed by: Tiffanie Hampton M.D. 03/19/25 23:20 PM
--- NOTE | 2025-03-19 23:29 | Magnetic Resonance Report ---
Exam(s): MRI C SPINE EXAM: MR Cervical Spine Without Intravenous Contrast CLINICAL HISTORY: Reason for exam: right upper extremity weakness. OTHER: Other Notes: NUMBNESS/TINGLING RIGHT ARM X FEW DAYS NO PREV. NECK SURG NO HX CANCER, propellers ran to help with motion TECHNIQUE: Magnetic resonance images of the cervical spine without intravenous contrast in multiple planes. Moderate motion artifact. COMPARISON: None. FINDINGS: Vertebrae: No marrow edema, compression deformity, discitis or osteomyelitis. Normal, smooth curvature. Spinal cord: No abnormal signal. Soft tissues: No epidural fluid collection. DISCS/SPINAL CANAL/NEURAL FORAMINA: C2-C3: Unremarkable. C3-C4: Unremarkable. C4-C5: Unremarkable. C5-C6: Minimal disc and osteophyte. C6-C7: Minimal disc and osteophyte. C7-T1: Unremarkable. OTHER: No disc herniation or central spinal stenosis. Patent bilateral neural foramen. Mild facet hypertrophy, commensurate with age. IMPRESSION: 1. Normal exam for this age group, with very mild degenerative change. 2. No disc herniation, spinal stenosis, epidural hematoma/abscess, abnormal cord signal, compression deformity or discitis/osteomyelitis. 4. Moderate motion/artifact limits evaluation. Electronically signed by: Tiffanie Hampton M.D. 03/19/25 23:27 PM
[2025-03-20] MEDS ORDERED: PHARMACIST DISCHARGE MED REC CONSULT PRN (00:38)
[2025-03-20] MEDS ORDERED: POLYETHYLENE (MIRALAX) 17 GM PACK PO PRN (00:38)
[2025-03-20] MEDS ORDERED: ONDANSETRON INJ 2 MG/ML 2 ML VIAL IV PRN (00:38)
[2025-03-20] MEDS ORDERED: ACETAMINOPHEN 325 MG TAB PO PRN (00:38)
[2025-03-20] MEDS ORDERED: INFLUENZA VACC TS2025-26(6m+)/PF (IIV3) 0.5mL Syr IM ONE (00:56)
[2025-03-20 07:09] LABS: Hematocrit (blood only) 36.3 % (37.0-47.0); Hemoglobin 12.8 g/dl (12.0-16.0); Immature Granulocytes # (auto) 0.01 K/uL (0.01-0.20); Immature Granulocytes % (auto) 0.1 %; Mean Corpuscular Hemoglobin 31.3 pg (25.0-34.0); Mean Corpuscular Volume 88.8 fL (80.0-100.0); Platelet Count 219 K/uL (130-400); RDW Standard Deviation 38.7 fL (36.4-46.3); Red Blood Count 4.09 M/uL (4.20-5.40); White Blood Count 7.06 K/ul (4.8-10.8)
[2025-03-20 07:26] LABS: Alanine Aminotransferase 66.0 U/L (7-52); Albumin Level 3.6 gm/dl (3.4-5.0); Alkaline Phosphatase 71.0 U/L (34-104); Anion Gap 9.0 (3-11); Bilirubin,Total 1.1 mg/dl (0.2-1.0); Blood Urea Nitrogen 8.0 mg/dl (6-23); Calcium 8.8 mg/dl (8.6-10.3); Carbon Dioxide 24.0 mmol/L (21-32); Chloride 107.0 mmol/L (98-107); Cholesterol 169.0 mg/dl (0-200); Creatinine Clr Calc Pharmacy 121.0 ml/min; Glucose 119.0 mg/dl (70-99(Fasting)); HDL Cholesterol 43.0 mg/dl; Potassium 3.4 mmol/L (3.5-5.1); Sodium 140.0 mmol/L (136-145); Total Protein 6.4 gm/dl (6.0-8.3); Triglycerides 107.0 mg/dl (0-150)
[2025-03-20 07:48] LABS: Hemoglobin A1C 4.9 % (4.5-5.6)
[2025-03-20] MEDS: FEXOFENADINE HCL 180 MG TAB PO SCH (08:09)
[2025-03-20] MEDS: ATENOLOL 25 MG TABLET PO SCH (08:09)
[2025-03-20] MEDS: FERROUS SULFATE 325 MG TAB PO SCH (08:09)
[2025-03-20] MEDS: METHYLPHENIDATE HCL 10 MG TABLET PO SCH (08:14)
[2025-03-20] MEDS: POTASSIUM CHLORIDE 10 MEQ TABCR PO STA (08:14)
[2025-03-20 11:59] VITALS: PULSE 64; RESP 16; TEMP 98.4; O2SAT 97
--- NOTE | 2025-03-20 12:18 | Nuclear Medicine Report ---
NM hepatobiliary CLINICAL HISTORY: 49 years-old Female with r/o acute cholecystitis. TECHNIQUE: Sequential anterior abdominal images were obtained through 60 minutes following the intra venous administration of 5.1 mCi of technetium-99m Choletec. COMPARISON: Abdominal ultrasound 03/19/2025 FINDINGS: There is prompt, uniform accumulation of the tracer by the liver. There is normal filling of the int rahepatic ducts, common bile duct and normal excretion of the tracer into the duodenum. The gallblad yaz fills normally. IMPRESSION: Normal hepatobiliary study. No scintigraphic evidence for acute cholecystitis or common bile duct obstruction. ACT 112: Negative or not required by law. The above report was generated using voice recognition software. It may contain grammatical, syntax o r spelling errors. Electronically signed by: David Jefferson M.D. 03/20/2025 12:16 PM
[2025-03-20] MEDS ORDERED: STROKE PATIENT DISCHARGE STA (13:12)
--- NOTE | 2025-03-20 13:17 | Discharge Summary ---
Discharge Summary Date of Service March 20, 2025 Principal Dx & Hospital Course #1 = Principal Diagnosis (1) Weakness of right upper extremity: (2) Elevated LFTs: (3) Neck pain: (4) Paroxysmal atrial fibrillation: (5) Cholelithiasis: Plan This patient is a 49-year-old female with a history of anemia, ADD, anxiety/PTSD, impaired fasting glucose, paroxysmal atrial fibrillation not on anticoagulation, current smoker, who presents with right upper extremity weakness. She reports that she has had issues with fine motor skills in the right hand over the last year but it was more pronounced just in the last 2 to 3 days. She feels pain in her right forearm and dull pain into right upper arm, some crampy, sharper pains in right side of neck, and sensation like she can't make her arm and hand do what she wants it to do. Some decreased sensation in RUE. No heart palpitations and she can tell exactly when she is in A-fib-has not had any episodes since she quit drinking EtOH 8 years ago. Denies CP, SOB, abd pain, headache, N/V. In the ED, her CT of the head, CT angiogram of the head and neck were negative, laboratory values were normal except for mildly elevated LFTs. At the time of admission, the brain MRI was already completed and was negative for stroke. She was admitted for workup for right upper extremity weakness, right sided neck pain and elevated LFTs. #Right upper extremity weakness/right sided neck pain-CVA ruled out. Cervical radiculopathy was entertained but a MRI of the cervical spine was negative for herniated disc or stenosis. She does have elevated LFTs which did not improve by the day of discharge except bilirubin came down to 1.1, AST and ALT remained mildly elevated. With right shoulder/upper arm pain-possibly related to GB issue although no abd pain or nausea and HIDA scan negative. Seems more likely she has a peripheral nerve issue-needs evaluation with nerve conduction study/EMG as an outpatient to look for a brachial plexus injury perhaps. There was no arrhythmias on telemetry. Her symptoms were somewhat improved but not resolved by the time of discharge therefore this is not a TIA. Echo pending at the time of discharge but doubtful there will be any significant pathology and has no bearing on her diagnosis at this time. Lipid panel is excellent, HgbA1c normal at 4.9%. Troponin negative. -no need for ASA, statin as MRI brain neg for stroke -Recommend outpatient EMG/NCS-PCP can order this as an outpatient - Advised not to lift more than 5 pounds with the right upper extremity #Elevated LFTs-TBili and AST, ALT elevated. Did have recent mononucleosis infection 2 to 3 months ago and could be from that. With acute onset of right shoulder/UE pain, questioned whether or not this was a gallbladder issue. A r ight upper quadrant ultrasound did show gallbladder stones and sludge, with upper limits of normal gallbladder wall thickness but no definite acute cholecystitis. A HIDA scan was ordered which was negative for acute cholecystitis. Discussed results with patient and she wishes to see general surgery about elective cholecystectomy to prevent future problems. She does also have a fatty liver seen on ultrasound. She quit drinking alcohol 8 years prior and has purposefully lost 30 to 40 pounds over the past few years. She does admit to eating a high-fat diet. HgbA1c normal at 4.9% - Recommend low-fat and low carbohydrate diet - Consider referral to GI for hepatology workup -Recommend follow-up LFTs in 1 week with PCP #Paroxysmal atrial fibrillation-not on anticoagulation-no episodes in 8 years since she quit drinking EtOH. CHADSVasc score 1 for female gender. No episodes of atrial fibrillation on telemetry and fortunately patient is aware anytime she goes into it. -continue atenolol -No anticoagulation indicated #Current smoker-encouraged cessation #Anxiety/PTSD/ADD-no acute issues -continue Ritalin, Concerta, xanax prn #GERD-cont PPI DVT prophylaxis-SCDs Disposition-stable for discharge to home Notes For Next Care Provider Please check LFTs in 1 week Consider referral to hepatology/GI for fatty liver and elevated LFTs Recommend NCS/EMG as an outpatient for right upper extremity pain and numbness Medication Changes From Visit None Admission HPI Per Admitting Provider This patient is a 49-year-old female with a history of anemia, ADD, anxiety/PTSD, impaired fasting glucose, paroxysmal atrial fibrillation not on anticoagulation, current smoker, who presents with right upper extremity weakness. She reports that she has had issues with fine motor skills in the right hand over the last year but it was more pronounced just in the last 2 to 3 days. She feels pain in her right forearm and dull pain into right upper arm, some crampy, sharper pains in right side of neck, and sensation like she can't make her arm and hand do what she wants it to do. Some decreased sensation in RUE. No heart palpitations and she can tell exactly when she is in A-fib-has not had any episodes since she quit drinking EtOH 8 years ago. Denies CP, SOB, abd pain, headache, N/V. In the ED, her CT of the head, CT angiogram of the head and neck were negative, laboratory values were normal except for mildly elevated LFTs. At the time of admission, the brain MRI was already completed and was negative for stroke. She will be admitted for workup for right upper extremity weakness, right sided neck pain and elevated LFTs. Discharge Exam Constitutional WD/WN, vitals as above Neck trachea midline, no thyromegaly Respiratory normal respiratory effort, lungs clear to auscultation Cardiovascular RRR, no murmur, no edema Chest (Breasts) Chest: normal inspection of chest Gastrointestinal (Abdomen) normal bowel sounds, soft, nontender, no hepatosplenomegaly Musculoskeletal Extremities: extremities normal to inspection; no cyanosis and no clubbing Skin no rashes, warm and dry Neurologic moves all extremities and awake; no focal motor deficits Speech / Cognition: normal speech Psychiatric A+Ox3, euthymic affect Discharge Plan Discharge Items Patient Disposition: Home - Self-Care Reason For Visit: RUE weakness Discharge Diagnosis: Right upper extremity weakness, pain Cholelithiasis Elevated liver function tests Fatty liver Condition on Discharge: Good Activity: As commented below Lifting: No more than 5 pounds Lifting Comment: With right upper extremity Bathing: No limitations Exercise/Sports: Gradually increase as tolerated Driving/Machine Use: No limitations Non-emergency contact: Primary Care Provider Call non-emergency contact if: you have any medication questions, your symptoms worsen, your pain is not controlled and your pain is worsening Follow-up/Referrals: Pily Iverson MD [Primary Care Provider] - (Follow-up within 1-2 weeks after discharge.) Reji Navarrete DO, FACS [Physician] - (You can call to schedule an appointment with Dr. Navarrete to be evaluated for an elective gallbladder surgery.) Diet: Low Fat Addtl Attending Provider Instructions: You were admitted for right upper extremity weakness and pain-you had imaging of the brain and the neck which were negative for stroke or herniated disc in the neck. It is recommended that you have a nerve conduction study/EMG with neurology for further evaluation to look for peripheral nerve injury. Your PCP can order this test. In the meantime, do not use that arm for heavy lifting and avoid straining at the neck. You had elevated liver enzymes and an ultrasound of your gallbladder and liver showed gallstones and sludge in the gallbladder as well as a fatty liver. A HIDA scan did not show any evidence of an acute infection of the gallbladder. You can be evaluated by a general surgeon for an elective cholecystectomy. For the fatty liver, it is important to follow a low-fat and low carbohydrate diet and continue to abstain from alcohol as you have been doing for many years. Your primary care provider may choose to refer you to a airline pilot flight instructor for further evaluation. Please have your PCP order your liver function tests for blood work in about 1 week. Please continue to work on nicotine vaping cessation as vaping is not considered to be any safer than smoking cigarettes and can still cause lung injury. It was a pleasure taking care of you! If you have any questions about your care before your hospital follow-up visit with your primary care provider, please call [phone] and ask to be transferred to the [facility] Medicine office. Sincerely, Priscilla Edwards M.D. Pending Studies at Discharge: No Stand-Alone Forms: [facility], Smoking Cessation Medications and DC Order Prescriptions: Continued atenolol 25 mg tablet 25 mg PO DAILY Qty: 30 5RF esomeprazole magnesium 20 mg capsule,delayed release(DR/EC) 20 mg PO DAILY Qty: 90 3RF ferrous sulfate [Feosol] 325 mg (65 mg iron) tablet 325 mg PO DAILY Qty: 30 1RF methylphenidate HCl [Ritalin] 10 mg tablet 10 mg PO BID Rx Instructions: morning and afternoon betamethasone dipropionate 0.05 % lotion 1 applic topical .COMPLEX Qty: 60 1RF Rx Instructions: 1 applic topically to areas of the scalp every other day as directed.; erythromycin with ethanol 2 % swab 1 applic topical DAILY Qty: 60 2RF Rx Instructions: Apply to back/shoulders once daily after washing. alprazolam [Xanax] 0.5 mg tablet 0.5 - 1 mg PO DAILY PRN (Reason: anxiety) Qty: 10 0RF fexofenadine [Nanci] 180 mg Tablet 180 mg PO QAM ibuprofen 0 mg PO DAILY PRN (Reason: Pain) Patient Comments: 03/19- per pt, she just started her menstrual cycle and wanted to add ibuprofen on for her pain methylphenidate HCl [Concerta] 27 mg tablet extended release 24hr 36 mg PO DAILY Discharge Orders: Discharge Order (Routine); Ordered 03/20/25 Ordered By: Priscilla Edwards Admission Data Admit Date/Time: 03/19/25 22:01 Attending Provider: Priscilla Edwards Admit Provider: Priscilla Edwards Primary Care Provider: Pily Iverson V. Other Providers: Priscilla Edwards Hospital Stay Data Consultations 03/19/25 17:33 ED Decision to Admit Stat Diagnostic Imagining Performed 03/19/25 13:57 CT head/brain wo con Stat 03/19/25 16:34 CT angio head w con Stat CT angio neck with con Stat 03/19/25 17:23 MR brain wo con Stat 03/19/25 19:41 MRI Cervical [MR cervical spine wo con] Routine 03/19/25 19:42 US gallbladder Stat Echocardiogram Pending Results Patient Have Any Pending Studies at Discharge: No Discharge Instructions Given to Patient (Per Discharging Provider) You were admitted for right upper extremity weakness and pain-you had imaging of the brain and the neck which were negative for stroke or herniated disc in the neck. It is recommended that you have a nerve conduction study/EMG with neurology for further evaluation to look for peripheral nerve injury. Your PCP can order this test. In the meantime, do not use that arm for heavy lifting and avoid straining at the neck. You had elevated liver enzymes and an ultrasound of your gallbladder and liver showed gallstones and sludge in the gallbladder as well as a fatty liver. A HIDA scan did not show any evidence of an acute infection of the gallbladder. You can be evaluated by a general surgeon for an elective cholecystectomy. For the fatty liver, it is important to follow a low-fat and low carbohydrate diet and continue to abstain from alcohol as you have been doing for many years. Your primary care provider may choose to refer you to a airline pilot flight instructor for further evaluation. Please have your PCP order your liver function tests for blood work in about 1 week. Please continue to work on nicotine vaping cessation as vaping is not considered to be any safer than smoking cigarettes and can still cause lung injury. It was a pleasure taking care of you! If you have any questions about your care before your hospital follow-up visit with your primary care provider, please call [phone] and ask to be transferred to the [facility] Medicine office. Sincerely, Priscilla Edwards M.D. Total Time Total Time Spent Total Time Spent (In Minutes): 40 minutes Total Time Includes: Examination of the Patient, Discharge Planning and Medication Reconciliation Coding Level of Care Code 38905 INP/OBS DISCH >30 MIN Diagnoses Weakness of right upper extremity R29.898 Elevated LFTs R79.89 Neck pain M54.2 Paroxysmal atrial fibrillation I48.0 Cholelithiasis K80.20
[2025-03-20 13:26] VITALS: BP 110/66
== END 2025-03-20 14:00 | disposition home or self-care (01) ==
LOC: ED 13:48 → 2E 13:48
DX: F43.10 Post-traumatic stress disorder, unspecified; M54.2 Cervicalgia; R29.898 Other symptoms and signs involving the musculoskeletal system; I48.0 Paroxysmal atrial fibrillation; K80.20 Calculus of gallbladder without cholecystitis without obstruction; F41.9 Anxiety disorder, unspecified; F17.210 Nicotine dependence, cigarettes, uncomplicated; F98.8 Other specified behavioral and emotional disorders with onset usually occurring in childhood and adolescence; Z88.1 Allergy status to other antibiotic agents; R73.01 Impaired fasting glucose; D64.9 Anemia, unspecified; R79.89 Other specified abnormal findings of blood chemistry; K21.9 Gastro-esophageal reflux disease without esophagitis; Z79.899 Other long term (current) drug therapy